=== PATIENT | female | born 1970 | race Caucasian/White ===

== ENCOUNTER 2016-07-17 20:43 | Emergency (ER) | payer MEDICAID ==
[~2016-07-17] VITALS: Ht 162.6 cm; Wt 62.6 kg
[~2016-07-17 20:43] MED LIST: ACETAMINOPHEN-1 EAC1 ORAL; CIPROFLOXACIN500 M2 ORAL; NKM; REGLAN10 MG PO; ZOFRAN ODT4 MG ORAL
[2016-07-17 20:58] VITALS: BP 127/64
[2016-07-17 21:43] LABS: BASOPHILS % (AUTO) 0.8 % (0.0-2.0); EOSINOPHILS % (AUTO) 0.8 % (0.0-3.0); MEAN CORPUSCULAR HEMOGLOBIN 30.6 PG (27.0-31.0); MEAN CORPUSCULAR HGB CONC 33.3 G/DL (32.0-36.0); MEAN CORPUSCULAR VOLUME 92 FL (80-99); MEAN PLATELET VOLUME 7.7 FL (6.5-10.1); MONOCYTES % (AUTO) 8.1 % (1.0-10.0); NEUTROPHILS % (AUTO) 57.3 % (45.0-75.0); PLATELET COUNT 167 K/UL (150-450); RED BLOOD COUNT 4.46 M/UL (4.20-5.40); WHITE BLOOD COUNT 5.8 K/UL (4.8-10.8)
[2016-07-17 21:59] VITALS: BP 114/76
[2016-07-17 22:13] LABS: APPEARANCE,URINE CLEAR; KETONES,URINE NEGATIVE (NEGATIVE); LEUKOCYTE ESTERASE ,URINE 3+ (NEGATIVE); NITRITE,URINE NEGATIVE (NEGATIVE); PH,URINE 6 (4.5-8.0); PROTEIN,URINE NEGATIVE (NEGATIVE); UROBILINOGEN,URINE NORMAL MG/DL (0.0-1.0)
[2016-07-17 22:26] LABS: RBC,URINE 0-2 /HPF (0 - 2)
[2016-07-17 22:27] LABS: BACTERIA,URINE FEW /HPF; SQUAMOUS EPITHELIAL CELL,UR MODERATE /LPF (NONE/OCC)
[2016-07-17 22:27] LABS: TROPONIN I < 0.30 ng/mL (<=0.30)
--- NOTE | 2016-07-17 22:29 | Emergency Room Report ---
History of Present Illness General Chief Complaint: Headache Source: Patient Present Illness HPI 45-year-old female presents to ED complaining of headache and neck pain. States that yesterday she had a syncopal fall while in the bathroom and hit her head. States since the fall she is complaining of pain to the back of her head radiating to her neck to her left shoulder. Pain is sharp, 8/10. No other aggravating relieving factors. Denies photophobia, blurry vision, nausea or vomiting. Denies chest pain or shortness of breath. Denies any other associated symptoms Allergies: Coded Allergies: No Known Allergies (Unverified , 03/03/13) Patient History Past Medical History: none Past Surgical History: none Pertinent Family History: none Social History: Denies: alcohol use, drug use, smoking Last Menstrual Period: 06/24/16 Now: No Immunizations: UTD Reviewed Nursing Documentation: PMH: Agreed, PSxH: Agreed Nursing Documentation-PMH Past Medical History: No Stated History Review of Systems All Other Systems: negative except mentioned in HPI Physical Exam Vital Signs Date Time Temp Pulse Resp B/P Pulse Ox O2 Delivery O2 Flow Rate FiO2 07/17/16 20:48 97.5 86 15 127/64 99 Room Air Sp02 EP Interpretation: reviewed, normal General Appearance: no apparent distress, alert, GCS 15, non-toxic Head: normocephalic, other - psoterior scalp tenderness Eyes: bilateral eye PERRL, bilateral eye normal inspection ENT: hearing grossly normal, normal pharynx, no angioedema, normal voice Neck: tender lateral, tender midline Respiratory: chest non-tender, lungs clear, normal breath sounds, speaking full sentences Cardiovascular #1: regular rate, rhythm, no edema Gastrointestinal: normal inspection Rectal: deferred Genitourinary: no CVA tenderness Musculoskeletal: back normal, gait/station normal, normal range of motion, non- tender Neurologic: alert, oriented x3, responsive, motor strength/tone normal, sensory intact, speech normal Psychiatric: normal inspection Skin: normal inspection Lymphatic: normal inspection Medical Decision Making Diagnostic Impression: Primary Impression: Head injury Qualified Codes: S09.90XA - Unspecified injury of head, initial encounter Additional Impression: Syncope Qualified Codes: R55 - Syncope and collapse ER Course Hospital Course 45-year-old female presents ED s/p syncopal episode. c/o headache, and neck pain due to fall Differential diagnoses include: arrythmia, dehydration, intracranial bleed, seizure, skull fx, cervical injury Clinical course Patient placed on stretcher. on surveillance monitor. After initial history and physical I ordered labs, EKG, chest Xray, IVFs, CT Brain, CT Cspine, pain meds labs reviewed- no leukocytosis, Hb/Hct stable, electrolytes ok, troponins negative CT Brain - unremarkable, CT Cspine shows DJD no acute fx EKG - NSR Upon reassessment patient states she feels better wishes to go home. per syncope rules patient can be safely discharged pending outpatient evaluation I. I feel this is a highly complex case requiring extensive working including EKG/Rhythm strip, Xray/CT/US, Blood/urine lab work, repeat exams while in ED, and administration of strong opiates/narcotics for pain control, admission to hospital or close patient follow up. Diagnosis - syncope, head injury Stable and discharged to home with Rx Motrin, Flexeril. Followup with PMD. Return to ED if symptoms recur or worsen Labs Test 07/17/16 21:20 07/17/16 21:50 White Blood Count 5.8 K/UL (4.8-10.8) Red Blood Count 4.46 M/UL (4.20-5.40) Hemoglobin 13.6 G/DL (12.0-16.0) Hematocrit 41.0 % (37.0-47.0) Mean Corpuscular Volume 92 FL (80-99) Mean Corpuscular Hemoglobin 30.6 PG (27.0-31.0) Mean Corpuscular Hemoglobin Concent 33.3 G/DL (32.0-36.0) Red Cell Distribution Width 11.0 % (11.6-14.8) Platelet Count 167 K/UL (150-450) Mean Platelet Volume 7.7 FL (6.5-10.1) Neutrophils (%) (Auto) 57.3 % (45.0-75.0) Lymphocytes (%) (Auto) 33.0 % (20.0-45.0) Monocytes (%) (Auto) 8.1 % (1.0-10.0) Eosinophils (%) (Auto) 0.8 % (0.0-3.0) Basophils (%) (Auto) 0.8 % (0.0-2.0) Troponin I < 0.30 ng/mL (<=0.30) Urine Color Pale yellow Urine Appearance Clear Urine pH 6 (4.5-8.0) Urine Specific [place] 1.010 (1.005-1.035) Urine Protein Negative (NEGATIVE) Urine Glucose (UA) Negative (NEGATIVE) Urine Ketones Negative (NEGATIVE) Urine Occult Blood 1+ (NEGATIVE) Urine Nitrite Negative (NEGATIVE) Urine Bilirubin Negative (NEGATIVE) Urine Urobilinogen Normal MG/DL (0.0-1.0) Urine Leukocyte Esterase 3+ (NEGATIVE) Urine RBC 0-2 /HPF (0 - 2) Urine WBC 10-15 /HPF (0 - 2) Urine Squamous Epithelial Cells Moderate /LPF (NONE/OCC) Urine Bacteria Few /HPF (NONE) Urine HCG, Qualitative Negative EKG Diagnostic Results Rate: normal Rhythm: NSR ST Segments: no acute changes ASA given to the pt in ED: No Rhythm Strip Diag. Results EP Interpretation: yes Rhythm: NSR, no PVC's, no ectopy CT/MRI/US Diagnostic Results CT/MRI/US Diagnostic Results : Imaging Test Ordered: CT head, CT Cspine Impression CT head - no acute process CT Cspine - no acute process Last Vital Signs Date Time Temp Pulse Resp B/P Pulse Ox O2 Delivery O2 Flow Rate FiO2 07/17/16 21:59 98.0 73 14 114/76 100 Room Air Status: improved Disposition: HOME, SELF-CARE Condition: Stable Scripts Cyclobenzaprine Hcl* (FLEXERIL*) 10 Mg Tablet 10 MG ORAL TID Y for Muscle Spasm, #20 TAB Prov: ALEXANDRA CRAWFORD M.D. 07/17/16 Ibuprofen* (MOTRIN*) 600 Mg Tablet 600 MG ORAL Q8H Y for For Pain, #30 TAB 0 Refills Prov: ALEXANDRA CRAWFORD M.D. 07/17/16 Referrals: [facility],REFERRING (PCP) ALEXANDRA CRAWFORD M.D. Jul 17, 2016 22:29
[2016-07-17] MEDS ORDERED: Ketorolac 30mg Inj IV ONE (22:30)
[2016-07-17 22:31] LABS: ALANINE AMINOTRANSFERASE 13 U/L (3-33); ALBUMIN/GLOBULIN RATIO 1.2 (1.0-2.7); ANION GAP 14 (5-15); ASPARTATE AMINO TRANSFERASE 16 U/L (5-40); CALCIUM 9.7 mg/dL (8.6-10.2); CARBON DIOXIDE 29 mEQ/L (20-30); CHLORIDE 99 mEQ/L (98-107); CREATININE 0.8 mg/dL (0.5-0.9); GLOMERULAR FILTRATION RATE > 60 mL/min (>60); HEMOLYSIS 8; POTASSIUM 3.6 mEQ/L (3.4-4.9); SODIUM 142 mEQ/L (135-145); TOTAL PROTEIN 7.5 g/dL (6.6-8.7)
[2016-07-17 22:36] LABS: CKMB < 1.5 ng/mL (< 3.8)
[2016-07-17] MEDS ORDERED: CYCLOBENZAPRINE10 MG ORAL (22:51)
[2016-07-17] MEDS ORDERED: IBUPROFEN600 MG ORAL (22:51)
[2016-07-17 23:01] VITALS: BP 116/79
--- NOTE | 2016-07-18 09:36 | Diagnostic Imaging Report ---
Indications: Syncope, fall, head trauma, neck pain, left upper extremity numbness Technique: Continuous helical CT imaging of the cervical spine performed with automatic exposure was on a Siemens sensation [address] scanner. Axial, coronal and sagittal images reconstructed at 3 mm slice thicknesses. CTDI volume(s): 10 mGy Total DLP: 209 mGy-cm Findings: Comparison: None. Lordotic curvature is preserved.Vertebral alignment is intact. No fracture, facet subluxation or dislocation, prevertebral soft tissue swelling, or other acute changes are demonstrated. Small osteophytes are present at the posterior margins of the C4-5 and C5-6 disc spaces. No obvious significant spinal stenosis or neural foraminal narrowing results.. IMPRESSION: No evidence of acute cervical injury Mild degenerative disc disease. Neural impingement not excludable. Consider MRI for more detailed evaluation.. This correlates with Dr. Ritter's preliminary report The CT scanner at [facility] is accredited by the [employer] and the scans are performed using protocols designed to limit radiation exposure to as low as reasonably achievable to attain images of sufficient resolution adequate for diagnostic evaluation.
--- NOTE | 2016-07-21 10:33 | Diagnostic Imaging Report ---
Indications: Syncope, fall, head trauma and pain, left upper extremity numbness Technique: Continuous helical CT imaging of the brain was performed with automatic exposure control on a Siemens sensation [address] scanner. Axial and coronal images were reconstructed at 5 mm slice thickness and interval. CTDI volume(s): 70 mGy Total DLP: 1340 mGy-cm Findings: Comparison: None. Intracranial anatomy is unremarkable. No evidence of mass or hemorrhage, other attenuation abnormality, mass effect, midline shift, hydrocephalus or increased intracranial pressure. Bone window images are unremarkable. Visualized paranasal sinuses and mastoid air cells are clear. IMPRESSION: Negative noncontrast CT scan of the brain --no evidence of acute injury. This correlates with Dr. Ritter's preliminary report. The CT scanner at [facility] is accredited by the [employer] and the scans are performed using protocols designed to limit radiation exposure to as low as reasonably achievable to attain images of sufficient resolution adequate for diagnostic evaluation.
--- NOTE | 2016-07-21 15:02 | Cardiology Report ---
APPROVED REPORT EKG Measurement Heart [id number] Normal sinus rhythm Incomplete right bundle branch block Borderline ECG
== END 2016-07-17 23:05 | disposition home or self-care (01) ==
LOC: EMR 21:32
DX: S09.8XXA Other specified injuries of head, initial encounter (principal); W19.XXXA Unspecified fall, initial encounter; Y92.002 Bathroom of unspecified non-institutional (private) residence as the place of occurrence of the external cause; R55 Syncope and collapse; M50.31 Other cervical disc degeneration, high cervical region
CPT/HCPCS: 36415; 70450; 72125; 80053; 81003; 81025; 82550; 82553; 84484; 85025; 87086; 93005; 96374; 96375; 99284; J1885; J7040

== ENCOUNTER 2019-09-10 03:30 | Inpatient (IN) | payer MEDICAID ==
[~2019-09-10] VITALS: Ht 165.1 cm; Wt 61.7 kg
[2019-09-10] VITALS (12 sets, daily range): BP systolic 96–132; BP diastolic 56–82
[~2019-09-10 03:30] MED LIST changes: +CYCLOBENZAPRINE10 MG ORAL; +IBUPROFEN600 MG ORAL
--- NOTE | 2019-09-10 03:39 | Emergency Room Report ---
History of Present Illness General Chief Complaint: To Be Triaged Source: Patient (Teofilo Lowe MD) Present Illness HPI Is a 48-year-old female who is postmenopausal. She presents with complaint abdominal pain. Onset was relatively acute. Pain started around midnight. Pain is periumbilical go down her right side. Pain is sharp and spasm. It came is in waves. She had nausea and vomiting when she got here. No fever or chills. Pain is 9 out of 10. No trauma. No urinary complaint. Nothing made it better. Nothing made it worse. Never had this problem before. (Teofilo Lowe MD) Allergies: Coded Allergies: No Known Allergies (Unverified , 03/03/13) Patient History Past Medical History: see triage record, old chart reviewed Past Surgical History: Pertinent Family History: none Social History: Denies: smoking Immunizations: other Reviewed Nursing Documentation: PMH: Agreed; PSxH: Agreed (Teofilo Lowe MD) Review of Systems Eye: Denies: eye pain, blurred vision ENT: Denies: ear pain, nose congestion, throat swelling Respiratory: Denies: cough, shortness of breath Cardiovascular: Denies: chest pain, palpitations Gastrointestinal: Reports: abdominal pain, nausea, vomiting; Denies: diarrhea Musculoskeletal: Denies: back pain, joint pain Skin: Denies: rash Neurological: Denies: headache, numbness Endocrine: Denies: increased thirst, increased urine Hematologic/Lymphatic: Denies: easy bruising All Other Systems: negative except mentioned in HPI (Teofilo Lowe MD) Physical Exam Vitals unremarkable Sp02 EP Interpretation: reviewed, normal General Appearance: well appearing, no apparent distress, alert Head: normocephalic, atraumatic Eyes: bilateral eye PERRL, bilateral eye EOMI ENT: hearing grossly normal, normal pharynx Neck: full range of motion, supple, no meningismus Respiratory: chest non-tender, lungs clear, normal breath sounds Cardiovascular #1: regular rate, rhythm, no murmur Gastrointestinal: normal bowel sounds, non tender, no mass, no organomegaly, no bruit, non-distended, decreased bowel sounds Musculoskeletal: back normal, normal range of motion, gait/station normal Psychiatric: mood/affect normal (Teofilo Lowe MD) Medical Decision Making Diagnostic Impression: Primary Impression: Abdominal pain Additional Impression: Appendicitis, acute Qualified Codes: K35.30 - Acute appendicitis with localized peritonitis, without perforation or gangrene ER Course This patient presents with abdominal pain periumbilical and now localized to the right lower quadrant. Labs normal. CT scan showed mildly dilated appendix without surrounding mesenteric inflammation. But there is a 3 mm appendicolith near the orifice. I reexamined the patient and now she does have localizing right lower quadrant pain. I put her on Zosyn. I contacted Dr. Calderon for surgical evaluation. (Teofilo Lowe MD) ER Course Please see above note. Patient examined by me. Pain is improved. She denies pain if there is no pressure applied to the abdomen. She states the pain is moving between the periumbilical area and the right lower quadrant. Abdomen is soft on exam. White count is normal. CT is reviewed with possible appendicitis. Patient states she wants to go home. Dr. Lowe said that he contacted Dr. Calderon for consult. [phone] Patient agrees to admission. Dr. Calderon recommends at least observation due to findings on CT. Patient to OR for appendectomy. Laboratory Tests Test 09/10/19 03:45 09/10/19 04:31 White Blood Count 10.6 K/UL (4.8-10.8) Red Blood Count 4.53 M/UL (4.20-5.40) Hemoglobin 14.1 G/DL (12.0-16.0) Hematocrit 39.8 % (37.0-47.0) Mean Corpuscular Volume 88 FL (80-99) Mean Corpuscular Hemoglobin 31.1 PG (27.0-31.0) H Mean Corpuscular Hemoglobin Concent 35.3 G/DL (32.0-36.0) Red Cell Distribution Width 11.3 % (11.6-14.8) L Platelet Count 199 K/UL (150-450) Mean Platelet Volume 8.3 FL (6.5-10.1) Neutrophils (%) (Auto) 73.1 % (45.0-75.0) Lymphocytes (%) (Auto) 21.2 % (20.0-45.0) Monocytes (%) (Auto) 4.4 % (1.0-10.0) Eosinophils (%) (Auto) 0.5 % (0.0-3.0) Basophils (%) (Auto) 0.8 % (0.0-2.0) Prothrombin Time 10.2 SEC (9.30-11.50) Prothrombin Time INR 1.0 (0.9-1.1) Activated Partial Thromboplast Time 23 SEC (23-33) Sodium Level 143 MMOL/L (136-145) Potassium Level 3.5 MMOL/L (3.5-5.1) Chloride Level 104 MMOL/L (98-107) Carbon Dioxide Level 28 MMOL/L (21-32) Anion Gap 11 mmol/L (5-15) Blood Urea Nitrogen 19 mg/dL (7-18) H Creatinine 0.8 MG/DL (0.55-1.30) Estimate Glomerular Filtration Rate > 60 mL/min (>60) Glucose Level 133 MG/DL (74-106) H Calcium Level 9.6 MG/DL (8.5-10.1) Total Bilirubin 0.4 MG/DL (0.2-1.0) Aspartate Amino Transferase (AST) 23 U/L (15-37) Alanine Aminotransferase (ALT) 29 U/L (12-78) Alkaline Phosphatase 92 U/L (46-116) Total Protein 7.9 G/DL (6.4-8.2) Albumin 4.2 G/DL (3.4-5.0) Globulin 3.7 g/dL Albumin/Globulin Ratio 1.1 (1.0-2.7) Lipase 200 U/L (73-393) Urine Color Yellow Urine Appearance Clear Urine pH 5 (4.5-8.0) Urine Specific [place] 1.025 (1.005-1.035) Urine Protein Negative (NEGATIVE) Urine Glucose (UA) Negative (NEGATIVE) Urine Ketones Negative (NEGATIVE) Urine Blood 2+ (NEGATIVE) H Urine Nitrite Negative (NEGATIVE) Urine Bilirubin Negative (NEGATIVE) Urine Urobilinogen Normal MG/DL (0.0-1.0) Urine Leukocyte Esterase 1+ (NEGATIVE) H Urine RBC 2-4 /HPF (0 - 2) H Urine WBC 0-2 /HPF (0 - 2) Urine Squamous Epithelial Cells Few /LPF (NONE/OCC) Urine Bacteria Few /HPF (NONE) (Jesse Lopez MD) Rhythm Strip Diag. Results EP Interpretation: yes Rhythm: NSR, no PVC's, no ectopy (Jesse Lopez MD) CT/MRI/US Diagnostic Results CT/MRI/US Diagnostic Results : Imaging Test Ordered: CT abdomen pelvis Impression Read by radiologist. Bendix is mildly dilated to 8 mm. There is without significant surrounding mesenteric inflammation. Possibly obstructed by 3 mm appendicolith near the orifice. May suggest early appendicitis. (Teofilo Lowe MD) CT/MRI/US Diagnostic Results : Imaging Test Ordered: abd/pelvis Impression Disclaimer: scant mesenteric fat limits evaluation of mesenteric inflammatory change. Appendix is mildly dilated 8mm, best seen on series 6 image 113, without significant surrounding mesenteric inflammation, possibly obstructed by 3 mm appendicoliths near orifice best seen on series 6 image 110, may suggest early appendicitis. Please correlate with clinical and laboratory findings. Hypodensities in the liver, likely cysts or hemangiomas, cannot be fully characterized due to lack of IV contrast. (Jesse Lopez MD) Status: improved (Teofilo Lowe MD) Last Vital Signs Date Time Temp Pulse Resp B/P (MAP) Pulse Ox O2 Delivery O2 Flow Rate FiO2 09/10/19 16:01 83 20 99 09/10/19 16:00 99.4 112/64 (80) 09/10/19 14:57 Nasal Cannula 3 Status: improved (Jesse Lopez MD) Disposition: ADMITTED INPATIENT Condition: Serious Teofilo Lowe MD Sep 10, 2019 03:39 Jesse Lopez MD Sep 10, 2019 06:54
[2019-09-10] MEDS ORDERED: Ketorolac 30mg Inj IV ONE (03:45)
[2019-09-10] MEDS ORDERED: Morphine Sulfate 4mg/ml Inj (IV USE ONLY) IVP ONE (03:45)
--- NOTE | 2019-09-10 03:50 | NUR ---
ED Nurse Note: Walk-in patient presents with complaints of right side abdominal pain. Labs drawn and sent, urine still pending post CT. patient already with photographic laboratory technician. Will monitor orders and acute status.
[2019-09-10 03:54] LABS: BASOPHILS % (AUTO) 0.8 % (0.0-2.0); EOSINOPHILS % (AUTO) 0.5 % (0.0-3.0); HEMATOCRIT 39.8 % (37.0-47.0); HEMOGLOBIN 14.1 G/DL (12.0-16.0); LYMPHOCYTES % (AUTO) 21.2 % (20.0-45.0); MEAN CORPUSCULAR VOLUME 88 FL (80-99); MONOCYTES % (AUTO) 4.4 % (1.0-10.0); NEUTROPHILS % (AUTO) 73.1 % (45.0-75.0); PLATELET COUNT 199 K/UL (150-450); RED BLOOD COUNT 4.53 M/UL (4.20-5.40); RED CELL DISTRIBUTION WIDTH 11.3 % (11.6-14.8); WHITE BLOOD COUNT 10.6 K/UL (4.8-10.8)
[2019-09-10 04:04] LABS: ANION GAP 11 mmol/L (5-15); BLOOD UREA NITROGEN 19 mg/dL (7-18); CALCIUM 9.6 MG/DL (8.5-10.1); CARBON DIOXIDE 28 MMOL/L (21-32); CHLORIDE 104 MMOL/L (98-107); CREATININE 0.8 MG/DL (0.55-1.30); POTASSIUM 3.5 MMOL/L (3.5-5.1); SODIUM 143 MMOL/L (136-145)
[2019-09-10 04:09] LABS: ALANINE AMINOTRANSFERASE 29 U/L (12-78); ALBUMIN 4.2 G/DL (3.4-5.0); ALBUMIN/GLOBULIN RATIO 1.1 (1.0-2.7); ALKALINE PHOSPHATASE 92 U/L (46-116); ASPARTATE AMINO TRANSFERASE 23 U/L (15-37); BILIRUBIN,TOTAL 0.4 MG/DL (0.2-1.0)
--- NOTE | 2019-09-10 04:50 | NUR ---
ED Nurse Note: Patient relaxing with at bedside. patient tolerated medication well and was able to ambulate to the restroom with steady gait. Will continue to monitor for lab results.
[2019-09-10 05:11] LABS: APPEARANCE,URINE CLEAR; BILIRUBIN, URINE NEGATIVE (NEGATIVE); GLUCOSE, URINE (UA) NEGATIVE (NEGATIVE); KETONES,URINE NEGATIVE (NEGATIVE); LEUKOCYTE ESTERASE ,URINE 1+ (NEGATIVE); NITRITE,URINE NEGATIVE (NEGATIVE); PH,URINE 5 (4.5-8.0); PROTEIN,URINE NEGATIVE (NEGATIVE); UROBILINOGEN,URINE NORMAL MG/DL (0.0-1.0)
[2019-09-10 05:25] LABS: COLOR,URINE YELLOW
--- NOTE | 2019-09-10 06:09 | NUR ---
ED Nurse Note: Patient has no complaints a this time and awaits CT result reading.
--- NOTE | 2019-09-10 06:10 | Diagnostic Imaging Report ---
Indication: Abdominal pain for one day Technique: Spiral acquisitions obtained through the abdomen and pelvis. No oral contrast utilized, per emergency room physician request No IV contrast utilized, per referring physician request.. Multiplanar reconstructions were generated. Total dose length product 230 mGycm. CTDIvol(s) 4 mGy. Dose reduction achieved using automated exposure control Comparison: None Findings: There is a small amount of free fluid in the pelvis. The appendix contains at least 2 appendicoliths. It is mildly prominent in caliber. No definite infiltration of the periappendiceal fat. No evidence of colonic diverticulosis or diverticulitis. No small bowel distention. No free or loculated intraperitoneal gas is evident. Distal esophagus, stomach, duodenum are unremarkable. Lack of IV contrast limits assessment of solid organs. The liver demonstrates multiple cysts. There is a subcentimeter fat attenuation lesion in segment 5. The bile ducts, pancreas, spleen, adrenals, kidneys are unremarkable. No retroperitoneal or mesenteric mass or adenopathy. No pelvic mass or adenopathy. Uterus and adnexal structures appear unremarkable. The included lung bases demonstrate posterior dependent atelectatic changes. The bones are unremarkable. Impression: Mildly prominent appendix demonstrating at least 2 appendicoliths, could represent very early appendicitis or could be normal for this patient. Correlate with clinical findings, consider follow-up imaging as indicated Free pelvic fluid, most likely physiologic Hepatic cysts and probable hepatic lipoma Posterior dependent pulmonary atelectatic changes This agrees with the preliminary interpretation provided overnight by [employer] teleradiology service. The CT scanner at [facility] is accredited by the [employer] and the scans are performed using protocols designed to limit radiation exposure to as low as reasonably achievable to attain images of sufficient resolution adequate for diagnostic evaluation.
[2019-09-10] MEDS ORDERED: Piperacillin/Tazobactam 3.375 GM in NS 110 ML IVPB ONE (06:30)
--- NOTE | 2019-09-10 07:01 | NUR ---
HAND-OFF: Report given to Daisy HANLEY.
[2019-09-10] MEDS ORDERED: Morphine Sulfate 2mg/ml Inj(IV/IM USE ONLY) IVP ONE (09:00)
--- NOTE | 2019-09-10 10:23 | GI Initial Consult Note ---
History of Present Illness General Date patient seen: Sep 10, 2019 Time patient seen: 10:16 Reason for Hospitalization: Abdominal Pain Referring physician: YENNI MARTINEZ Reason for Consultation: ABDOMINAL PAIN Present Illness HPI Is a 48-year-old female who is postmenopausal. She presents with complaint abdominal pain. Onset was relatively acute. Pain started around midnight. Pain is periumbilical go down her right side. Pain is sharp and spasm. It came is in waves. She had nausea and vomiting when she got here. No fever or chills. Pain is 9 out of 10. No trauma. No urinary complaint. Nothing made it better. Nothing made it worse. Never had this problem before. GI consulted for episode of severe abdominal pain x1. Patient was seen, awake alert oriented x4 no apparent distress with no active signs or symptoms of any nausea vomiting. At the time of evaluation, the patient rates her abdominal pain is 1 out of 10. Abdomen was soft, non-tender with light palpation, nondistended. The patient denied any constipation or diarrhea. The patient denied any use of EtOH, alcohol tobacco or drugs. Patient denies any prior episodes. Patient has no history of endoscopic or colonoscopy. The patient had an abdominal pelvis CT performed care and noted at least 2 appendicoliths which may represent very early appendicitis. 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 The patient has no history of endoscopic or colonoscopy. Home Meds Active Scripts Cyclobenzaprine Hcl* (FLEXERIL*) 10 Mg Tablet, 10 MG ORAL TID PRN for Muscle Spasm, #20 TAB Prov:Fabio Dey MD 07/17/16 Ibuprofen* (MOTRIN*) 600 Mg Tablet, 600 MG ORAL Q8H PRN for For Pain, #30 TAB 0 Refills Prov:Fabio Dey MD 07/17/16 Acetaminophen With Codeine (T#3) (TYLENOL #3 TAB*) 1 Each Tablet, 1 TAB ORAL Q4HR PRN for For Pain, #15 TAB 0 Refills Prov:Italia Morel 07/01/15 Ondansetron Odt* (ZOFRAN ODT*) 4 Mg Tab.rapdis, 4 MG ORAL Q6H PRN for Nausea & Vomiting, #12 TAB 0 Refills Prov:Italia Morel 07/01/15 Ciprofloxacin Hcl* (CIPROFLOXACIN HCL*) 500 Mg Tablet, 500 MG ORAL Q12H, #14 TAB 0 Refills Prov:Italia Morel PAC 07/01/15 Metoclopramide Hcl* (REGLAN*) 10 Mg Tablet, 10 MG PO BID, #15 TAB 0 Refills Prov:Shaila Orellana DO 03/03/13 Reported Medications No Known Medications* (NKM - No Known Medications*) ., 0 ., 0 Refills 03/03/13 Med list reviewed/reconciled: Yes Allergies: Coded Allergies: No Known Allergies (Unverified , 03/03/13) Patient History History Provided By: Patient, Medical Record Past Surgical History: none Pertinent Family History: none Social History: Denies: smoking, alcohol use, drug use, other Review of Systems All Other Systems: negative except mentioned in HPI Physical Exam Vital Signs Date Time Temp Pulse Resp B/P (MAP) Pulse Ox O2 Delivery O2 Flow Rate FiO2 09/10/19 03:37 99.0 72 18 132/82 (99) 97 Room Air Sp02 EP Interpretation: reviewed, normal Labs Laboratory Tests Test 09/10/19 03:45 09/10/19 04:31 White Blood Count 10.6 K/UL (4.8-10.8) Red Blood Count 4.53 M/UL (4.20-5.40) Hemoglobin 14.1 G/DL (12.0-16.0) Hematocrit 39.8 % (37.0-47.0) Mean Corpuscular Volume 88 FL (80-99) Mean Corpuscular Hemoglobin 31.1 PG (27.0-31.0) H Mean Corpuscular Hemoglobin Concent 35.3 G/DL (32.0-36.0) Red Cell Distribution Width 11.3 % (11.6-14.8) L Platelet Count 199 K/UL (150-450) Mean Platelet Volume 8.3 FL (6.5-10.1) Neutrophils (%) (Auto) 73.1 % (45.0-75.0) Lymphocytes (%) (Auto) 21.2 % (20.0-45.0) Monocytes (%) (Auto) 4.4 % (1.0-10.0) Eosinophils (%) (Auto) 0.5 % (0.0-3.0) Basophils (%) (Auto) 0.8 % (0.0-2.0) Prothrombin Time 10.2 SEC (9.30-11.50) Prothromb Time International Ratio 1.0 (0.9-1.1) Activated Partial Thromboplast Time 23 SEC (23-33) Sodium Level 143 MMOL/L (136-145) Potassium Level 3.5 MMOL/L (3.5-5.1) Chloride Level 104 MMOL/L (98-107) Carbon Dioxide Level 28 MMOL/L (21-32) Anion Gap 11 mmol/L (5-15) Blood Urea Nitrogen 19 mg/dL (7-18) H Creatinine 0.8 MG/DL (0.55-1.30) Estimat Glomerular Filtration Rate > 60 mL/min (>60) Glucose Level 133 MG/DL (74-106) H Calcium Level 9.6 MG/DL (8.5-10.1) Total Bilirubin 0.4 MG/DL (0.2-1.0) Aspartate Amino Transf (AST/SGOT) 23 U/L (15-37) Alanine Aminotransferase (ALT/SGPT) 29 U/L (12-78) Alkaline Phosphatase 92 U/L (46-116) Total Protein 7.9 G/DL (6.4-8.2) Albumin 4.2 G/DL (3.4-5.0) Globulin 3.7 g/dL Albumin/Globulin Ratio 1.1 (1.0-2.7) Lipase 200 U/L (73-393) Urine Color Yellow Urine Appearance Clear Urine pH 5 (4.5-8.0) Urine Specific [place] 1.025 (1.005-1.035) Urine Protein Negative (NEGATIVE) Urine Glucose (UA) Negative (NEGATIVE) Urine Ketones Negative (NEGATIVE) Urine Blood 2+ (NEGATIVE) H Urine Nitrite Negative (NEGATIVE) Urine Bilirubin Negative (NEGATIVE) Urine Urobilinogen Normal MG/DL (0.0-1.0) Urine Leukocyte Esterase 1+ (NEGATIVE) H Urine RBC 2-4 /HPF (0 - 2) H Urine WBC 0-2 /HPF (0 - 2) Urine Squamous Epithelial Cells Few /LPF (NONE/OCC) Urine Bacteria Few /HPF (NONE) General Appearance: well appearing, no apparent distress, alert Head: normocephalic EENT: PERRL/EOMI, normal ENT inspection Neck: supple Respiratory: normal breath sounds, no respiratory distress Cardiovascular: normal rate Gastrointestinal: normal inspection, non tender, soft, normal bowel sounds, non -distended Rectal: deferred Genitourinary: no CVA tenderness Musculoskeletal: normal inspection, back normal Neurologic: alert, oriented x3, responsive, normal inspection Psychiatric: normal inspection, judgement/insight normal, memory normal Skin: normal inspection, normal color, no rash, warm/dry, palpation normal, well hydrated Lymphatic: normal inspection, no adenopathy Current Medications Current Medications Medications (Trade) Dose Ordered Sig/Joey Route PRN Reason Start Time Stop Time Status Last Admin Dose Admin Sodium Chloride 1,000 ml @ 300 mls/hr Q3H20M IV 09/10/19 09:15 10/10/19 09:14 09/10/19 09:45 GI: Plan Problems: (1) Hepatic cyst (2) Appendicitis, acute (3) Abdominal pain Plan #Appendicitis Follow-up surgical recommendations for possible appendectomy Maintain n.p.o. plus IV fluids Pain management, controlled at this time Prophylactic PPI Broad-spectrum antibiotic, Zosyn x1 given in the ER #Hepatic cyst v hepatic hemangioma Benign, no treatment necessary. Recommend repeat imaging study x1 year We will follow on a daily basis with any additional recommendations. Discussed with Dr. Bello. Thank you for this patient referral, we will follow. The patient was seen and examined at bedside and all new and available data was reviewed in the patients chart. I agree with the above findings, impression and plan. (Patient seen earlier today. Signature stamp does not reflect patient encounter time.). - MD Chrissy VillelaBanner Goldfield Medical CenterCamilla COLORING ROOM WORKER Sep 10, 2019 10:23
--- NOTE | 2019-09-10 11:10 | NUR ---
ED Nurse Note: AB screen endorsed to Zenobia RN.
--- NOTE | 2019-09-10 11:11 | NUR ---
ED Nurse Note: Report given to Zenobia RN.
--- NOTE | 2019-09-10 11:17 | Pre-Procedure Note/Attestation ---
Pre-Procedure Note/Attestation Complete Prior to Procedure Planned Procedure: not applicable Procedure Narrative: laparoscopic appendectomy possible open Indications for Procedure Pre-Operative Diagnosis: early acute appendicitis Attestation I attest that I discussed the nature of the procedure; its benefits; risks and complications; and alternatives (and the risks and benefits of such alternatives ), prior to the procedure, with the patient (or the patient's legal event sales representative). I attest that, if there was a reasonable possibility of needing a blood transfusion, the patient (or the patient's legal event sales representative) was given the [facility] standardized written summary, pursuant to the [place] Blood Safety Act ([place] Health and Safety Code # 1645, as amended). I attest that I re-evaluated the patient just prior to the surgery and that there has been no change in the patient's H&P, except as documented below: Marin Calderon Sep 10, 2019 11:17
--- NOTE | 2019-09-10 11:24 | Consultation ---
History of Present Illness General Date patient seen: Sep 10, 2019 Reason for Hospitalization: Abdominal Pain Present Illness HPI this is a 48 year old otherwise healthy female who presented to ED with complaints of acute onset periumbilical radiating to RLQ abdominal pain. states work her up from sleep and was 10/10 cramping sharp pain shooting from umbilicus to RLQ. +nausea. no emesis. nml bowel function. Has been feeling unwell for 2-3 days prior. In ED labs okay, CT with two appendicolithis, exam with RLQ tenderness. surgery called to evaluate. patient seen, chart reviewed, patient examined. states still discomfort but better since given morphine. menopause 2 years ago. otherwise healthy Allergies: Coded Allergies: No Known Allergies (Unverified , 03/03/13) Medication History Scheduled Ciprofloxacin Hcl* (Ciprofloxacin Hcl*), 500 MG ORAL Q12H Metoclopramide Hcl* (Reglan*), 10 MG PO BID No Known Medications* (NKM - No Known Medications*), 0 ., (Reported) Scheduled PRN Acetaminophen With Codeine (T#3) (Tylenol #3 Tab*), 1 TAB ORAL Q4HR PRN for For Pain Cyclobenzaprine Hcl* (Flexeril*), 10 MG ORAL TID PRN for Muscle Spasm Ibuprofen* (Motrin*), 600 MG ORAL Q8H PRN for For Pain Ondansetron Odt* (Zofran Odt*), 4 MG ORAL Q6H PRN for Nausea & Vomiting Patient History History Provided By: Patient, Medical Record, PMD Healthcare decision maker Resuscitation status Advanced Directive on File Past Medical/Surgical History Past Medical/Surgical History: (1) Viral gastroenteritis (2) Bacteria in urine (3) Abdominal pain (4) Hepatic cyst (5) Appendicitis, acute Review of Systems Review of Symptoms General ROS: no weight loss or fever Psychological ROS: no depression or mood changes, no memory loss Ophthalmic ROS: no visual changes or eye irritation ENT ROS: no nasal congestion, hearing loss, dizziness Allergy and Immunology ROS: no allergic symptoms or urticaria Hematological and Lymphatic ROS: no swollen glands, unusual bleeding or bruising Endocrine ROS: no polyuria, polydipsia, weight changes, temperature intolerance Respiratory ROS: no cough, shortness of breath, or wheezing Cardiovascular ROS: no chest pain or dyspnea on exertion Gastrointestinal ROS: abdominal pain, bright red blood in stool. Musculoskeletal ROS: no myalgias or arthralgias Neurological ROS: no TIA or stroke symptoms Dermatological ROS: no new or changing skin lesions, rashes or pruritis Physical Exam Physical Exam General appearance: alert, cooperative, no distress, appears stated age Head: Normocephalic, without obvious abnormality, atraumatic Eyes: conjunctivae/corneas clear. PERRL, EOM's intact. Fundi benign Throat: Lips, mucosa, and tongue normal. Teeth and gums normal Neck: supple, symmetrical, trachea midline, no adenopathy, thyroid: not enlarged, symmetric, no tenderness/mass/nodules, no carotid bruit and no JVD Lungs: clear to auscultation bilaterally Heart: regular rate and rhythm, S1, S2 normal, no murmur, click, rub or gallop Abdomen: soft, RLQ-tender. Bowel sounds normal. No masses, no organomegaly Extremities: extremities normal, atraumatic, no cyanosis or edema Pulses: 2+ and symmetric Skin: Skin color, texture, turgor normal. No rashes or lesions Neurologic: Grossly normal Last 24 Hour Vital Signs Date Time Temp Pulse Resp B/P (MAP) Pulse Ox O2 Delivery O2 Flow Rate FiO2 09/10/19 06:41 97.8 76 17 98/56 100 Room Air 09/10/19 04:13 99.0 09/10/19 04:13 99.0 09/10/19 03:37 99.0 72 18 132/82 97 Room Air 09/10/19 03:37 72 18 Room Air 09/10/19 03:37 99.0 72 18 132/82 (99) 97 Room Air Intake and Output 09/09/19 09/10/19 19:00 07:00 Intake Total 1000 ml Balance 1000 ml Intake Oral 0 ml IV Total 1000 ml Laboratory Tests Test 09/10/19 03:45 09/10/19 04:31 White Blood Count 10.6 K/UL (4.8-10.8) Red Blood Count 4.53 M/UL (4.20-5.40) Hemoglobin 14.1 G/DL (12.0-16.0) Hematocrit 39.8 % (37.0-47.0) Mean Corpuscular Volume 88 FL (80-99) Mean Corpuscular Hemoglobin 31.1 PG (27.0-31.0) H Mean Corpuscular Hemoglobin Concent 35.3 G/DL (32.0-36.0) Red Cell Distribution Width 11.3 % (11.6-14.8) L Platelet Count 199 K/UL (150-450) Mean Platelet Volume 8.3 FL (6.5-10.1) Neutrophils (%) (Auto) 73.1 % (45.0-75.0) Lymphocytes (%) (Auto) 21.2 % (20.0-45.0) Monocytes (%) (Auto) 4.4 % (1.0-10.0) Eosinophils (%) (Auto) 0.5 % (0.0-3.0) Basophils (%) (Auto) 0.8 % (0.0-2.0) Prothrombin Time 10.2 SEC (9.30-11.50) Prothromb Time International Ratio 1.0 (0.9-1.1) Activated Partial Thromboplast Time 23 SEC (23-33) Sodium Level 143 MMOL/L (136-145) Potassium Level 3.5 MMOL/L (3.5-5.1) Chloride Level 104 MMOL/L (98-107) Carbon Dioxide Level 28 MMOL/L (21-32) Anion Gap 11 mmol/L (5-15) Blood Urea Nitrogen 19 mg/dL (7-18) H Creatinine 0.8 MG/DL (0.55-1.30) Estimat Glomerular Filtration Rate > 60 mL/min (>60) Glucose Level 133 MG/DL (74-106) H Calcium Level 9.6 MG/DL (8.5-10.1) Total Bilirubin 0.4 MG/DL (0.2-1.0) Aspartate Amino Transf (AST/SGOT) 23 U/L (15-37) Alanine Aminotransferase (ALT/SGPT) 29 U/L (12-78) Alkaline Phosphatase 92 U/L (46-116) Total Protein 7.9 G/DL (6.4-8.2) Albumin 4.2 G/DL (3.4-5.0) Globulin 3.7 g/dL Albumin/Globulin Ratio 1.1 (1.0-2.7) Lipase 200 U/L (73-393) Urine Color Yellow Urine Appearance Clear Urine pH 5 (4.5-8.0) Urine Specific [place] 1.025 (1.005-1.035) Urine Protein Negative (NEGATIVE) Urine Glucose (UA) Negative (NEGATIVE) Urine Ketones Negative (NEGATIVE) Urine Blood 2+ (NEGATIVE) H Urine Nitrite Negative (NEGATIVE) Urine Bilirubin Negative (NEGATIVE) Urine Urobilinogen Normal MG/DL (0.0-1.0) Urine Leukocyte Esterase 1+ (NEGATIVE) H Urine RBC 2-4 /HPF (0 - 2) H Urine WBC 0-2 /HPF (0 - 2) Urine Squamous Epithelial Cells Few /LPF (NONE/OCC) Urine Bacteria Few /HPF (NONE) Height (Feet): 5 Height (Inches): 6.00 Weight (Pounds): 132 Medications Current Medications Medications (Trade) Dose Ordered Sig/Joey Route PRN Reason Start Time Stop Time Status Last Admin Dose Admin Sodium Chloride 1,000 ml @ 300 mls/hr Q3H20M IV 09/10/19 09:15 10/10/19 09:14 09/10/19 09:45 Assessment/Plan Problem List: (1) Abdominal pain (2) Appendicitis, acute Assessment & Plan: 48F with possible likely early acute appendicitis. afebrile, HD stable, labs okay CT noted exam with focal RLQ tenderness mcburney's point with mild voluntary guarding and rebound. long discussion with patient about above findings. i explained to her potential of early acute appendicitis vs enteritis, muscle spasm, etc. offered monitoring inpatient vs outpatient vs surgery. given tender and still remains so after narotics with focal in RLQ patient elected to proceed with surgical intervention. she does not want to take risk of monitoring and if potential of appendicitis would like to have early intervention risks, benefits, and alternatives discussed in detail. we discussed possibility of normal operative findings and potential normal appendix intraoperative npo iv fluids iv abx consent to OR for lap vs open appy thank you ICD Codes: K35.80 - Unspecified acute appendicitis SNOMED: [id number] Qualifiers: Qualified Codes: K35.30 - Acute appendicitis with localized peritonitis, without perforation or gangrene Marin Calderon Sep 10, 2019 11:24
--- NOTE | 2019-09-10 11:30 | NUR ---
NURSE NOTES: Patient received from ER. No SOB or acute distress. IV line on left hand g20 intact and patent. For laparoscopic appendectomy, consent for surgery and blood transfusion signed. NPO post 2am. HOB elevated. Bed locked in lowest position. Call light within reach. Addendum: 09/10/19 at 1947 by Zenobia Taylor RN Skin intact. Belongings accounted for and placed in safe.
--- NOTE | 2019-09-10 11:40 | Anethesia Preoperative Eval ---
Anesthesia Pre-op PMH/ROS General Date of Evaluation: Sep 10, 2019 Time of Evaluation: 12:30 Anesthesiologist: Malinda Dominguez CRNA ASA Score: ASA 1 Mallampati Score Class I : Soft palate, uvula, fauces, pillars visible Class II: Soft palate, uvula, fauces visible Class III: Soft palate, base of uvula visible Class IV: Only hard plate visible Mallampati Classification: Class II Surgeon: Yumiko Diagnosis: Acute appendicitis Surgical Procedure: Laparoscopic appendectomy Family History: no anesthesia problems Allergies: Coded Allergies: No Known Allergies (Unverified , 03/03/13) Medications: see eMAR Patient NPO?: Yes NPO Date: Sep 10, 2019 NPO Time: 00:00 Past Medical History Cardiovascular: Denies: HTN, CAD, [place], valve dz, arrhythmia, other Pulmonary: Denies: asthma, COPD, RYAN, other Gastrointestinal/Genitourinary: Reports: other - acute appendicitis (+) N/V; post menopausal Neurologic/Psychiatric: Denies: dementia, CVA, depression/anxiety, TIA, other Endocrine: Denies: DM, hypothyroidism, steroids, other HEENT: Denies: cataract (L), cataract (R), glaucoma, PAUMA (L), PAUMA (R), other Hematology/Immune: Denies: anemia, DVT, bleeding disorder, other Musculoskeletal/Integumentary: Denies: OA, RA, DJD, DDD, edema, other PMH Narrative: as noted above PSxH Narrative: C/S Anesthesia Pre-op Phys. Exam Physician Exam Last Vital Signs Date Time Temp Pulse Resp B/P (MAP) Pulse Ox O2 Delivery O2 Flow Rate FiO2 09/10/19 11:20 97.8 72 18 112/76 99 Room Air Constitutional: NAD Neurologic: other - alert & oriented Cardiovascular: RRR Respiratory: CTA Gastrointestinal: other - guarding Airway Exam Mallampati Score: Class II MO: full Neck: FROM TMD: > 3FB ROM: full Teeth: intact Dentures: no upper, no lower Anesthesia Pre-op A/P Labs Hematology Test 09/10/19 03:45 White Blood Count 10.6 K/UL (4.8-10.8) Red Blood Count 4.53 M/UL (4.20-5.40) Hemoglobin 14.1 G/DL (12.0-16.0) Hematocrit 39.8 % (37.0-47.0) Mean Corpuscular Volume 88 FL (80-99) Mean Corpuscular Hemoglobin 31.1 PG (27.0-31.0) H Mean Corpuscular Hemoglobin Concent 35.3 G/DL (32.0-36.0) Red Cell Distribution Width 11.3 % (11.6-14.8) L Platelet Count 199 K/UL (150-450) Mean Platelet Volume 8.3 FL (6.5-10.1) Neutrophils (%) (Auto) 73.1 % (45.0-75.0) Lymphocytes (%) (Auto) 21.2 % (20.0-45.0) Monocytes (%) (Auto) 4.4 % (1.0-10.0) Eosinophils (%) (Auto) 0.5 % (0.0-3.0) Basophils (%) (Auto) 0.8 % (0.0-2.0) Coagulation Test 09/10/19 03:45 Prothrombin Time 10.2 SEC (9.30-11.50) Prothromb Time International Ratio 1.0 (0.9-1.1) Activated Partial Thromboplast Time 23 SEC (23-33) Chemistry Test 09/10/19 03:45 Sodium Level 143 MMOL/L (136-145) Potassium Level 3.5 MMOL/L (3.5-5.1) Chloride Level 104 MMOL/L (98-107) Carbon Dioxide Level 28 MMOL/L (21-32) Anion Gap 11 mmol/L (5-15) Blood Urea Nitrogen 19 mg/dL (7-18) H Creatinine 0.8 MG/DL (0.55-1.30) Estimat Glomerular Filtration Rate > 60 mL/min (>60) Glucose Level 133 MG/DL (74-106) H Calcium Level 9.6 MG/DL (8.5-10.1) Total Bilirubin 0.4 MG/DL (0.2-1.0) Aspartate Amino Transf (AST/SGOT) 23 U/L (15-37) Alanine Aminotransferase (ALT/SGPT) 29 U/L (12-78) Alkaline Phosphatase 92 U/L (46-116) Total Protein 7.9 G/DL (6.4-8.2) Albumin 4.2 G/DL (3.4-5.0) Globulin 3.7 g/dL Albumin/Globulin Ratio 1.1 (1.0-2.7) Lipase 200 U/L (73-393) Urine Test n/a Risk Assessment & Plan Assessment: ASA 1E; ok to proceed Plan: GETA Status Change Before Surgery: No Pre-Antibiotics Drug: Malinda Jose CRNA Sep 10, 2019 11:40
[2019-09-10] MEDS ORDERED: Propofol 200mg/20ml IV ONE (11:41)
[2019-09-10] MEDS ORDERED: Lidocaine 1% MPF 10mg/ml 5ml ONE (11:41)
[2019-09-10] MEDS ORDERED: fentaNYL 100 mcg/2 mL IV ONE (11:41)
[2019-09-10] MEDS ORDERED: Midazolam 2mg/2ml Inj ONE (11:42)
[2019-09-10] MEDS ORDERED: Succinylcholine 20mg/ml 10ml vial ONE (11:56)
[2019-09-10] MEDS ORDERED: Rocuronium Bromide 50mg/5ml Inj IV ONE (11:56)
--- NOTE | 2019-09-10 12:30 | NUR ---
NURSE NOTES: Patient transported to OR.
[2019-09-10] MEDS ORDERED: Glycopyrrolate 0.2mg/ml 1ml Vial ONE (13:16)
[2019-09-10] MEDS ORDERED: Ketorolac 30mg Inj ONE (13:16)
[2019-09-10] MEDS ORDERED: Dexamethasone 4mg/ml vial ONE (13:16)
[2019-09-10] MEDS ORDERED: Metoclopramide 10mg/2ml Inj ONE (13:16)
[2019-09-10] MEDS ORDERED: Neostigmine 1mg/ml 10ml Inj ONE (13:16)
[2019-09-10] MEDS ORDERED: Morphine Sulfate 10mg/ml Inj ONE (13:18)
[2019-09-10] MEDS ORDERED: Hydromorphone 0.5mg/0.5ml inj IVP PRN (13:30)
[2019-09-10] MEDS ORDERED: Meperidine 25mg/0.5ml Inj (FOR RIGORS ONLY) IV PRN (13:30)
--- NOTE | 2019-09-10 13:31 | Immediate Post-Op Evaluation ---
Immediate Post-Op Evalulation Immediate Post-Op Evalulation Procedure: Laparoscopic Appendectomy Date of Evaluation: Sep 10, 2019 Time of Evaluation: 14:00 IV Fluids: LR 800 ml Estimated Blood Loss: 5 Blood Pressure Systolic: 105 Blood Pressure Diastolic: 62 Pulse Rate: 84 Respiratory Rate: 20 O2 Sat by Pulse Oximetry: 100 Temperature (Fahrenheit): 99.2 Pain Score (1-10): 0 Nausea: No Vomiting: No Complications none Patient Status: awake, extubated Hydration Status: adequate Drug: Zosyn 3.375 gm Given Within 1 Hr of Incision: Yes Time Given: 13:00 Malinda Dominguez CRNA Sep 10, 2019 13:31
--- NOTE | 2019-09-10 13:44 | Infectious Diseases Prog Note ---
Subjective Allergies: Coded Allergies: No Known Allergies (Unverified , 03/03/13) Subjective Dic # [id number] Objective Vital Signs Last 24 Hour Vital Signs Date Time Temp Pulse Resp B/P (MAP) Pulse Ox O2 Delivery O2 Flow Rate FiO2 09/10/19 11:40 Room Air 09/10/19 11:20 97.8 72 18 112/76 99 Room Air 09/10/19 06:41 97.8 76 17 98/56 100 Room Air 09/10/19 04:13 99.0 09/10/19 04:13 99.0 09/10/19 03:37 99.0 72 18 132/82 97 Room Air 09/10/19 03:37 72 18 Room Air 09/10/19 03:37 99.0 72 18 132/82 (99) 97 Room Air Height (Feet): 5 Height (Inches): 5.00 Weight (Pounds): 136 Laboratory Tests Test 09/10/19 03:45 09/10/19 04:31 White Blood Count 10.6 K/UL (4.8-10.8) Red Blood Count 4.53 M/UL (4.20-5.40) Hemoglobin 14.1 G/DL (12.0-16.0) Hematocrit 39.8 % (37.0-47.0) Mean Corpuscular Volume 88 FL (80-99) Mean Corpuscular Hemoglobin 31.1 PG (27.0-31.0) H Mean Corpuscular Hemoglobin Concent 35.3 G/DL (32.0-36.0) Red Cell Distribution Width 11.3 % (11.6-14.8) L Platelet Count 199 K/UL (150-450) Mean Platelet Volume 8.3 FL (6.5-10.1) Neutrophils (%) (Auto) 73.1 % (45.0-75.0) Lymphocytes (%) (Auto) 21.2 % (20.0-45.0) Monocytes (%) (Auto) 4.4 % (1.0-10.0) Eosinophils (%) (Auto) 0.5 % (0.0-3.0) Basophils (%) (Auto) 0.8 % (0.0-2.0) Prothrombin Time 10.2 SEC (9.30-11.50) Prothromb Time International Ratio 1.0 (0.9-1.1) Activated Partial Thromboplast Time 23 SEC (23-33) Sodium Level 143 MMOL/L (136-145) Potassium Level 3.5 MMOL/L (3.5-5.1) Chloride Level 104 MMOL/L (98-107) Carbon Dioxide Level 28 MMOL/L (21-32) Anion Gap 11 mmol/L (5-15) Blood Urea Nitrogen 19 mg/dL (7-18) H Creatinine 0.8 MG/DL (0.55-1.30) Estimat Glomerular Filtration Rate > 60 mL/min (>60) Glucose Level 133 MG/DL (74-106) H Calcium Level 9.6 MG/DL (8.5-10.1) Total Bilirubin 0.4 MG/DL (0.2-1.0) Aspartate Amino Transf (AST/SGOT) 23 U/L (15-37) Alanine Aminotransferase (ALT/SGPT) 29 U/L (12-78) Alkaline Phosphatase 92 U/L (46-116) Total Protein 7.9 G/DL (6.4-8.2) Albumin 4.2 G/DL (3.4-5.0) Globulin 3.7 g/dL Albumin/Globulin Ratio 1.1 (1.0-2.7) Lipase 200 U/L (73-393) Urine Color Yellow Urine Appearance Clear Urine pH 5 (4.5-8.0) Urine Specific [place] 1.025 (1.005-1.035) Urine Protein Negative (NEGATIVE) Urine Glucose (UA) Negative (NEGATIVE) Urine Ketones Negative (NEGATIVE) Urine Blood 2+ (NEGATIVE) H Urine Nitrite Negative (NEGATIVE) Urine Bilirubin Negative (NEGATIVE) Urine Urobilinogen Normal MG/DL (0.0-1.0) Urine Leukocyte Esterase 1+ (NEGATIVE) H Urine RBC 2-4 /HPF (0 - 2) H Urine WBC 0-2 /HPF (0 - 2) Urine Squamous Epithelial Cells Few /LPF (NONE/OCC) Urine Bacteria Few /HPF (NONE) Current Medications Medications (Trade) Dose Ordered Sig/Joey Route PRN Reason Start Time Stop Time Status Last Admin Dose Admin Acetaminophen (Tylenol) 650 mg Q4H PRN ORAL Mild Pain (Pain Scale 1-3) 09/10/19 13:30 09/10/19 21:00 Hydromorphone HCl (Dilaudid) 0.5 mg Q15M PRN IVP Severe Pain (Pain Scale 7-10) 09/10/19 13:30 09/10/19 21:00 Meperidine HCl (Demerol) 25 mg Q15M PRN IV Shivering 09/10/19 13:30 09/10/19 21:00 Ondansetron HCl (Zofran) 4 mg Q1H PRN IVP Nausea & Vomiting 09/10/19 13:30 09/10/19 21:00 Piperacillin Sod/ Tazobactam Sod 3.375 gm/Sodium Chloride 110 ml @ 27.5 mls/hr EVERY 8 HOURS IVPB 09/10/19 14:00 09/15/19 13:59 Sodium Chloride 1,000 ml @ 300 mls/hr Q3H20M IV 09/10/19 09:15 10/10/19 09:14 09/10/19 09:45 Antony Gomez MD Sep 10, 2019 13:44
--- NOTE | 2019-09-10 13:52 | Brief Operative Note ---
Immediate Post Operative Note Operative Note Pre-op Diagnosis: early acute appendicitis Procedure: lap appy Post-op Diagnosis: same as pre-op Surgeon: orly Anesthesiologist: marialuisa Anesthesia: general, local Specimen: yes Complications: none Condition: stable Fluids: see records Estimated Blood Loss: minimal Drains: none Implant(s) used?: No Marin Calderon Sep 10, 2019 13:52
[2019-09-10] MEDS ORDERED: Morphine Sulfate 2mg/ml Inj(IV/IM USE ONLY) IVP PRN (14:00)
[2019-09-10] MEDS: Piperacillin/Tazobactam 3.375 GM in NS 110 ML IVPB SCH ×2 (14:00→22:24)
[2019-09-10] MEDS ORDERED: HYDROcodone/Acetamin 5/325 tab ORAL PRN (14:00)
[2019-09-10] MEDS ORDERED: ceFAZolin sod 2 GM in D5W 110 ML IV SCH (14:00)
[2019-09-10] MEDS ORDERED: Morphine Sulfate 4mg/ml Inj (IV USE ONLY) IVP PRN (14:00)
[2019-09-10] MEDS ORDERED: Ketorolac 30mg Inj IV PRN (14:00)
[2019-09-10] MEDS ORDERED: DiphenhydrAMINE 25mg Tab ORAL PRN (14:00)
[2019-09-10] MEDS ORDERED: HYDROcodone/Acetamin 10/325 tab ORAL PRN (14:00)
[2019-09-10] MEDS ORDERED: Sennosides 8.6mg tab ORAL PRN (14:00)
--- NOTE | 2019-09-10 15:25 | NUR ---
NURSE NOTES: Patient back on floor. With steri stips as post op dressing. May DC IV if able to tolerate fluids. Addendum: 09/10/19 at 1950 by Zenobia Taylor RN For incentive spirometry, spoke to ellen of [facility].
--- NOTE | 2019-09-10 16:01 | 48 Hour Post Anesthesia Eval ---
Post Anesthesia Evaluation Procedure: Laparoscopic Appendectomy Date of Evaluation: Sep 10, 2019 Time of Evaluation: 16:00 Blood Pressure Systolic: 102 0: 63 Pulse Rate: 83 Respiratory Rate: 20 Temperature (Fahrenheit): 98.2 O2 Sat by Pulse Oximetry: 99 Airway: patent Nausea: No Vomiting: No Pain Intensity: 3 Hydration Status: adequate Cardiopulmonary Status: Stable Mental Status/LOC: patient returned to baseline Follow-up Care/Observations: 0 Post-Anesthesia Complications: 0 Follow-up care needed: N/A Francisco Fang MD Sep 10, 2019 16:01
[2019-09-10] MEDS: Docusate 100mg cap ORAL SCH (17:28)
--- NOTE | 2019-09-10 17:30 | History and Physical Report ---
DATE OF ADMISSION: 09/10/2019 TIME SEEN: 11 a.m. CONSULTANTS: 1. Marin Calderon M.D. 2. Jackson Bello M.D. 3. Antony Gomez M.D. CHIEF COMPLAINT: Appendicitis, abdominal pain, nausea and vomiting. BRIEF HISTORY: The patient is a 48-year-old female who lives at home, presents with two-day increased abdominal pain, nausea, vomiting. Pain was generalized and radiates to the right lower quadrant, came to [facility], diagnosed with the above, and being admitted to medical floor. Currently, calm, in the [place]. No complaint. REVIEW OF SYSTEMS: No chest pain. Slight nausea and vomiting. No diarrhea. PAST MEDICAL HISTORY: Nothing. PAST SURGICAL HISTORY: Nothing. MEDICATIONS: Include Zosyn, midazolam, propofol, lidocaine, fentanyl, IV fluids, morphine. ALLERGIES: Denies. SOCIAL HISTORY: No smoking. No alcohol. No intravenous drug abuse. FAMILY HISTORY: Noncontributory. PHYSICAL EXAMINATION: GENERAL: Calm in bed, oriented x3, no acute distress. VITAL SIGNS: Temperature 97, pulse 72, respiratory rate 18, blood pressure 112/76. CARDIOVASCULAR: No murmur. LUNGS: Distant and clear. ABDOMEN: Bowel sounds positive. Nondistended. Slightly tender right lower quadrant. No guarding. No rigidity. No rebound. EXTREMITIES: No cyanosis or edema. NEUROLOGIC: The patient moves all extremities, slightly weak. LABORATORY DATA: CBC is normal. BMP show BUN 19, glucose 133, otherwise normal. INR is 1.0 and PTT 23. Urinalysis show 1+ leukocyte esterase. ASSESSMENT: 1. Appendicitis. 2. Abdominal pain. 3. Nausea and vomiting. 4. Urinary tract infection. PLAN: 1. Antibiotics as ordered. 2. NPO, IV fluids. 3. Zofran as needed . 4. Surgery followup. 5. CBC and BMP in the morning. Chirag Valencia D.O. DR: William JOB#: [id number] CC:
--- NOTE | 2019-09-10 18:30 | NUR ---
NURSE NOTES: Able to tolerated sips of fluids and a little dinner. No reports of nausea.
--- NOTE | 2019-09-10 19:15 | Operative Note - Dictated ---
DATE OF OPERATION: 09/10/2019 PREOPERATIVE DIAGNOSIS: Acute appendicitis. POSTOPERATIVE DIAGNOSIS: Acute appendicitis, uncomplicated. OPERATION PERFORMED: Laparoscopic appendectomy. ATTENDING SURGEON: Marin Calderon M.D. DIRECTOR OF CARDIOLOGY: None. ANESTHESIOLOGIST: Malinda Dominguez CRNA ANESTHESIA: General G[employer] INST[employer]ER plus local. ESTIMATED BLOOD LOSS: Minimal. IV FLUIDS: Please see anesthesia records. COMPLICATIONS: None. DRAINS: None. COUNTS: Sponge and needle count correct x2. WOUND CLASSIFICATION: Class 3. SPECIMENS: Appendix sent to pathology for review. ANTIBIOTICS: The patient is on scheduled IV Zosyn for acute active infectious process. INDICATIONS FOR PROCEDURE: This is a 48-year-old female, who has been admitted to the Emergency Department of [facility] complaining of worsening abdominal pain in the periumbilical area radiating to the right lower quadrant for 1 day with associated nausea. Laboratories okay. CT scan identified appendicoliths. On examination with focal right lower quadrant tenderness and rebound. Given these findings, considerations for the acute appendicitis and physical exam consistent with appendicitis. Long discussion was held with the patient regards to above findings, care plan, and condition. Offered her a surgical intervention versus monitoring medical management. The patient expressed that she was not comfortable with monitoring and definitive treatment even with the possibility of a negative laparoscopy. Risks, benefits, and alternatives were discussed. Consent was obtained. The patient was taken to the operating room. OPERATIVE NOTE: The patient was taken to the operating room and placed on the operating table in supine position with left arm tucked. All bony prominences were well padded. SCDs placed. Preoperative time-out taken in identifying the patient, procedure, operative staff, and surgical staff. General anesthesia was induced. The patient was intubated. The patient is already on scheduled IV antibiotics. The patient did not require a Shane given that she voided prior. The abdomen was clipped, prepped, and draped in standard surgical fashion. An umbilical incision was made using a fresh #11 scalpel and carried down to the fascia, which was elevated and incised. Entry into the abdomen was obtained using open Jalen technique without complication. A 12 mm Jalen trocar was inserted. The abdomen was insufflated to 12 to 15 mmHg. The patient tolerated the insufflation well. Laparoscope was inserted and the abdomen was inspected. No injury from initial trocar placement noted. Secondary trocars were placed under direct visualization beginning with a 12 mm left lower quadrant followed by 5 mm suprapubic. No injury from secondary trocar placement noted. Local anesthetic was infiltrated into all port sites and skin incisions throughout the procedure to the patient's comfort. The patient was placed in Trendelenburg position with left side down. The pelvis was identified with Murky fluid. The cecum was identified, followed down to the teniae confluence where the base of the appendix was noted to be dilated and inflamed with early formation of phlegmon and tissue. The tip of the appendix was identified and fairly healthy. The appendix was grasped and elevated. A window was made between the base of the appendix and the mesoappendix. A laparoscopic linear stapler was used and the appendix was divided at the base without complication. Following this, the mesoappendix was divided using a laparoscopic linear stapler without complication. The staple lines were checked and hemostasis was obtained with laparoscopic clips without complication. Good hemostasis was noted. No bleeding and viable tissue noted. An inflamed appendix was placed in endoscopic retrieval bag and removed from the abdomen using the umbilical port site. The right lower quadrant and pelvis were irrigated and suctioned clean. The abdomen was inspected. No other abnormalities were identified. At this time, we began the conclusion of our procedure. Secondary trocars were removed under direct visualization followed by the umbilical trocar site. The abdomen was desufflated. The umbilical trocar site and left lower quadrant port site fascia were reapproximated using [id number] #0 Vicryl sutures. Skin incisions were reapproximated using 4-0 Monocryl subcuticular interrupted sutures. Skin glue and Steri-Strips were applied. The patient tolerated the procedure well and was extubated and taken to postanesthetic care unit in stable condition. Marin Calderon M.D. DR: MONE JOB#: [id number] CC:
--- NOTE | 2019-09-10 19:42 | NUR ---
HAND-OFF: Report given to felicitas.
--- NOTE | 2019-09-10 19:44 | NUR ---
NURSE NOTES: Received report from Zenobia RN. Rounding is done with outgoing nurse. Patient is in bed, a/o x4. No sob noted. Denied pain or any distress. Iv site is intact and patient. Bed is on alarm, locked, and Lowest position. Call light within reach. Will continue to monitor.
[2019-09-11] VITALS: BP 95/56
[2019-09-11 04:00] VITALS: BP 97/63
[2019-09-11] MEDS: Piperacillin/Tazobactam 3.375 GM in NS 110 ML IVPB SCH ×2 (05:11→14:45)
[2019-09-11 07:07] LABS: BASOPHILS % (AUTO) 0.3 % (0.0-2.0); HEMATOCRIT 34.2 % (37.0-47.0); HEMOGLOBIN 11.9 G/DL (12.0-16.0); LYMPHOCYTES % (AUTO) 11.2 % (20.0-45.0); MEAN CORPUSCULAR VOLUME 88 FL (80-99); MONOCYTES % (AUTO) 3.8 % (1.0-10.0); NEUTROPHILS % (AUTO) 84.7 % (45.0-75.0); PLATELET COUNT 155 K/UL (150-450); RED BLOOD COUNT 3.86 M/UL (4.20-5.40); RED CELL DISTRIBUTION WIDTH 11.5 % (11.6-14.8); WHITE BLOOD COUNT 6.6 K/UL (4.8-10.8)
[2019-09-11 07:19] LABS: ANION GAP 10 mmol/L (5-15); BLOOD UREA NITROGEN 12 mg/dL (7-18); CALCIUM 9.1 MG/DL (8.5-10.1); CARBON DIOXIDE 27 MMOL/L (21-32); CHLORIDE 110 MMOL/L (98-107); CREATININE 0.7 MG/DL (0.55-1.30); POTASSIUM 4.3 MMOL/L (3.5-5.1); SODIUM 146 MMOL/L (136-145)
--- NOTE | 2019-09-11 07:30 | NUR ---
HAND-OFF: Report given to Tomi HANLEY. Patient in stable condition.
--- NOTE | 2019-09-11 07:43 | NUR ---
NURSE NOTES: Received pt from DAYAN Amador. pt was resting. no c/o pain. no acute distress, surgical dressing sites are clean and dry. call light w/in reach.
[2019-09-11 08:00] VITALS: BP 109/74
[2019-09-11] MEDS: Docusate 100mg cap ORAL SCH (08:16)
--- NOTE | 2019-09-11 09:37 | General Progress Note ---
Assessment/Plan Problem List: (1) Abdominal pain (2) Appendicitis, acute ICD Codes: K35.80 - Unspecified acute appendicitis SNOMED: 63956675 Qualifiers: Qualified Codes: K35.30 - Acute appendicitis with localized peritonitis, without perforation or gangrene (3) Bacteria in urine ICD Codes: N39.0 - Urinary tract infection, site not specified SNOMED: 50479299 Status: stable, progressing Assessment/Plan: gi sx adv diet abx cbc bmp am Subjective Constitutional: Reports: weakness Allergies: Coded Allergies: No Known Allergies (Unverified , 03/03/13) All Systems: reviewed and negative except above Subjective calm in bed passing gas Objective Last 24 Hour Vital Signs Date Time Temp Pulse Resp B/P (MAP) Pulse Ox O2 Delivery O2 Flow Rate FiO2 09/11/19 08:00 98.1 69 18 109/74 (86) 98 09/11/19 04:00 98.3 69 18 97/63 (74) 98 09/11/19 00:00 97.4 66 18 95/56 (69) 97 09/10/19 21:00 Room Air 09/10/19 20:00 99.7 86 18 96/62 (73) 98 09/10/19 16:01 83 20 99 09/10/19 16:00 99.4 82 18 112/64 (80) 96 09/10/19 14:57 98.2 83 20 102/63 99 Nasal Cannula 3 09/10/19 14:45 98.2 81 20 101/63 100 Nasal Cannula 3 09/10/19 14:30 74 20 101/60 100 Nasal Cannula 3 09/10/19 14:15 75 20 101/59 100 Nasal Cannula 3 09/10/19 14:05 78 20 104/60 100 Simple Mask 8 09/10/19 14:03 84 20 100 09/10/19 14:00 80 20 105/61 100 Simple Mask 8 09/10/19 13:56 99.2 84 20 105/62 100 Simple Mask 8 09/10/19 11:40 Room Air 09/10/19 11:20 97.8 72 18 112/76 99 Room Air Intake and Output 09/10/19 09/11/19 19:00 07:00 Intake Total 840 ml 110.0 ml Balance 840 ml 110.0 ml Intake Oral 240 ml IV Total 600 ml 110.0 ml # Voids 1 1 Laboratory Tests 09/11/19 05:25: White Blood Count 6.6, Red Blood Count 3.86L, Hemoglobin 11.9L, Hematocrit 34.2L , Mean Corpuscular Volume 88, Mean Corpuscular Hemoglobin 30.7, Mean Corpuscular Hemoglobin Concent 34.7, Red Cell Distribution Width 11.5L, Platelet Count 155, Mean Platelet Volume 8.1, Neutrophils (%) (Auto) 84.7H, Lymphocytes (%) (Auto) 11.2L, Monocytes (%) (Auto) 3.8, Eosinophils (%) (Auto) 0.0, Basophils (%) (Auto) 0.3, Sodium Level 146H, Potassium Level 4.3, Chloride Level 110H, Carbon Dioxide Level 27, Anion Gap 10, Blood Urea Nitrogen 12, Creatinine 0.7, Estimat Glomerular Filtration Rate > 60, Glucose Level 96, Calcium Level 9.1 Height (Feet): 5 Height (Inches): 5.00 Weight (Pounds): 136 General Appearance: lethargic EENT: normal ENT inspection Neck: normal alignment Cardiovascular: normal peripheral pulses, normal rate, regular rhythm Respiratory/Chest: chest wall non-tender, lungs clear, normal breath sounds Abdomen: normal bowel sounds, non tender, soft Extremities: normal inspection Edema: no edema noted Arm (L), no edema noted Arm (R), no edema noted Leg (L), no edema noted Leg (R), no edema noted Pedal (L), no edema noted Pedal (R), no edema noted Generalized Neurologic: responsive, motor weakness Skin: normal pigmentation, warm/dry Chirag Valencia DO Sep 11, 2019 09:37
--- NOTE | 2019-09-11 10:10 | NUR ---
PT Note PT eval completed; patient was instructed on log rolling techniques to minimize incisional pain. Patient is independent and safe in all mobility and gait. No further PT treatments needed. Addendum: 09/11/19 at 1011 by BEENA JIMÉNEZ PT Amended: Links added.
[2019-09-11 12:00] VITALS: BP 103/61
[2019-09-11] MEDS ORDERED: Sterile Water Irrig 1000ml IRRIG ONE (12:30)
[2019-09-11] MEDS ORDERED: NS Irrig 1000ml ONE (12:30)
[2019-09-11] MEDS ORDERED: LR 1000ml ONE (12:30)
--- NOTE | 2019-09-11 14:08 | Infectious Diseases Prog Note ---
Assessment/Plan Assessment/Plan Asssessment: Acute appendicitis -09/10 SP Laparoscopic appendectomy. Afebrile No leukocytosis Plan: -Continue Zosyn #2 -f/u cx -Monitor CBC/CMP, temperatures -wound care per surgical team thank you for consulting [facility]. Will continue to follow along with you. Discussed with RN. Subjective Allergies: Coded Allergies: No Known Allergies (Unverified , 03/03/13) Subjective afebrile sp lap appy yesterday Objective Vital Signs Last 24 Hour Vital Signs Date Time Temp Pulse Resp B/P (MAP) Pulse Ox O2 Delivery O2 Flow Rate FiO2 09/11/19 12:00 97.7 85 18 103/61 (75) 98 09/11/19 09:00 Room Air 09/11/19 08:00 98.1 69 18 109/74 (86) 98 09/11/19 04:00 98.3 69 18 97/63 (74) 98 09/11/19 00:00 97.4 66 18 95/56 (69) 97 09/10/19 21:00 Room Air 09/10/19 20:00 99.7 86 18 96/62 (73) 98 09/10/19 16:01 83 20 99 09/10/19 16:00 99.4 82 18 112/64 (80) 96 09/10/19 14:57 98.2 83 20 102/63 99 Nasal Cannula 3 09/10/19 14:45 98.2 81 20 101/63 100 Nasal Cannula 3 09/10/19 14:30 74 20 101/60 100 Nasal Cannula 3 09/10/19 14:15 75 20 101/59 100 Nasal Cannula 3 Height (Feet): 5 Height (Inches): 5.00 Weight (Pounds): 136 Objective Dressing: dry Wound: clean Cardiovascular: RSR Respiratory: clear Abdomen: soft, non-tender, present bowel sounds Extremities: no edema, no tenderness, no cyanosis Laboratory Tests Test 09/11/19 05:25 White Blood Count 6.6 K/UL (4.8-10.8) Red Blood Count 3.86 M/UL (4.20-5.40) L Hemoglobin 11.9 G/DL (12.0-16.0) L Hematocrit 34.2 % (37.0-47.0) L Mean Corpuscular Volume 88 FL (80-99) Mean Corpuscular Hemoglobin 30.7 PG (27.0-31.0) Mean Corpuscular Hemoglobin Concent 34.7 G/DL (32.0-36.0) Red Cell Distribution Width 11.5 % (11.6-14.8) L Platelet Count 155 K/UL (150-450) Mean Platelet Volume 8.1 FL (6.5-10.1) Neutrophils (%) (Auto) 84.7 % (45.0-75.0) H Lymphocytes (%) (Auto) 11.2 % (20.0-45.0) L Monocytes (%) (Auto) 3.8 % (1.0-10.0) Eosinophils (%) (Auto) 0.0 % (0.0-3.0) Basophils (%) (Auto) 0.3 % (0.0-2.0) Sodium Level 146 MMOL/L (136-145) H Potassium Level 4.3 MMOL/L (3.5-5.1) Chloride Level 110 MMOL/L (98-107) H Carbon Dioxide Level 27 MMOL/L (21-32) Anion Gap 10 mmol/L (5-15) Blood Urea Nitrogen 12 mg/dL (7-18) Creatinine 0.7 MG/DL (0.55-1.30) Estimat Glomerular Filtration Rate > 60 mL/min (>60) Glucose Level 96 MG/DL (74-106) Calcium Level 9.1 MG/DL (8.5-10.1) Current Medications Medications (Trade) Dose Ordered Sig/Joey Route PRN Reason Start Time Stop Time Status Last Admin Dose Admin Acetaminophen (Tylenol) 650 mg Q6H PRN ORAL Mild Pain (Pain Scale 1-3) 09/10/19 21:00 10/10/19 20:59 Acetaminophen/ Hydrocodone Bitart ([place] 10/325) 1 tab Q4H PRN ORAL Severe Pain (Pain Scale 7-10) 09/10/19 14:00 09/17/19 13:59 Acetaminophen/ Hydrocodone Bitart ([place] 5/325) 1 tab Q4H PRN ORAL Moderate Pain (Pain Scale 4-6) 09/10/19 14:00 09/17/19 13:59 Al Hydroxide/Mg Hydroxide (Mylanta) 15 ml Q6H PRN ORAL DYSPEPSIA 09/10/19 14:00 10/10/19 13:59 Diphenhydramine HCl (Benadryl) 25 mg Q8H PRN ORAL Itching/Pruritis 09/10/19 14:00 10/10/19 13:59 Docusate Sodium (Colace) 100 mg TWICE A DAY ORAL 09/10/19 18:00 10/10/19 17:59 09/11/19 08:16 Ketorolac Tromethamine (Toradol 30mg) 15 mg Q6H PRN IV For break through Pain 09/10/19 14:00 09/15/19 13:59 Morphine Sulfate (Morphine Sulfate) 2 mg Q4H PRN IVP pain scale 4-6 09/10/19 14:00 09/17/19 13:59 09/11/19 09:53 Morphine Sulfate (Morphine Sulfate) 4 mg Q4H PRN IVP pain score 7-10 09/10/19 14:00 09/17/19 13:59 Ondansetron HCl (Zofran) 4 mg Q6H PRN IVP Nausea & Vomiting 09/10/19 14:00 10/10/19 13:59 Piperacillin Sod/ Tazobactam Sod 3.375 gm/Sodium Chloride 110 ml @ 27.5 mls/hr EVERY 8 HOURS IVPB 09/10/19 14:00 09/15/19 13:59 09/11/19 05:11 Sennosides (Senokot) 8.6 mg BIDPRN PRN ORAL Constipation 09/10/19 14:00 10/10/19 13:59 Temazepam (RestoriL) 7.5 mg DAILYPRN PRN ORAL Insomnia 09/10/19 14:21 09/17/19 14:20 Shelly Borja M.D. Sep 11, 2019 14:08
--- NOTE | 2019-09-11 14:11 | Surgery Progress Note ---
Surgery Progress Note Subjective Procedure Performed lap appy Symptoms: improved Objective Last 24 Hour Vital Signs Date Time Temp Pulse Resp B/P (MAP) Pulse Ox O2 Delivery O2 Flow Rate FiO2 09/11/19 12:00 97.7 85 18 103/61 (75) 98 09/11/19 09:00 Room Air 09/11/19 08:00 98.1 69 18 109/74 (86) 98 09/11/19 04:00 98.3 69 18 97/63 (74) 98 09/11/19 00:00 97.4 66 18 95/56 (69) 97 09/10/19 21:00 Room Air 09/10/19 20:00 99.7 86 18 96/62 (73) 98 09/10/19 16:01 83 20 99 09/10/19 16:00 99.4 82 18 112/64 (80) 96 09/10/19 14:57 98.2 83 20 102/63 99 Nasal Cannula 3 09/10/19 14:45 98.2 81 20 101/63 100 Nasal Cannula 3 09/10/19 14:30 74 20 101/60 100 Nasal Cannula 3 09/10/19 14:15 75 20 101/59 100 Nasal Cannula 3 I&O Intake and Output 09/10/19 09/11/19 19:00 07:00 Intake Total 840 ml 110.0 ml Balance 840 ml 110.0 ml Intake Oral 240 ml IV Total 600 ml 110.0 ml # Voids 1 1 Dressing: dry Wound: clean Cardiovascular: RSR Respiratory: clear Abdomen: soft, non-tender, present bowel sounds Extremities: no edema, no tenderness, no cyanosis Laboratory Tests Test 09/11/19 05:25 White Blood Count 6.6 K/UL (4.8-10.8) Red Blood Count 3.86 M/UL (4.20-5.40) L Hemoglobin 11.9 G/DL (12.0-16.0) L Hematocrit 34.2 % (37.0-47.0) L Mean Corpuscular Volume 88 FL (80-99) Mean Corpuscular Hemoglobin 30.7 PG (27.0-31.0) Mean Corpuscular Hemoglobin Concent 34.7 G/DL (32.0-36.0) Red Cell Distribution Width 11.5 % (11.6-14.8) L Platelet Count 155 K/UL (150-450) Mean Platelet Volume 8.1 FL (6.5-10.1) Neutrophils (%) (Auto) 84.7 % (45.0-75.0) H Lymphocytes (%) (Auto) 11.2 % (20.0-45.0) L Monocytes (%) (Auto) 3.8 % (1.0-10.0) Eosinophils (%) (Auto) 0.0 % (0.0-3.0) Basophils (%) (Auto) 0.3 % (0.0-2.0) Sodium Level 146 MMOL/L (136-145) H Potassium Level 4.3 MMOL/L (3.5-5.1) Chloride Level 110 MMOL/L (98-107) H Carbon Dioxide Level 27 MMOL/L (21-32) Anion Gap 10 mmol/L (5-15) Blood Urea Nitrogen 12 mg/dL (7-18) Creatinine 0.7 MG/DL (0.55-1.30) Estimat Glomerular Filtration Rate > 60 mL/min (>60) Glucose Level 96 MG/DL (74-106) Calcium Level 9.1 MG/DL (8.5-10.1) Plan Problems: (1) Abdominal pain (2) Appendicitis, acute Assessment & Plan: 48F with possible likely early acute appendicitis. afebrile, HD stable, labs okay CT noted exam with focal RLQ tenderness mcburney's point with mild voluntary guarding and rebound. long discussion with patient about above findings. i explained to her potential of early acute appendicitis vs enteritis, muscle spasm, etc. offered monitoring inpatient vs outpatient vs surgery. given tender and still remains so after narotics with focal in RLQ patient elected to proceed with surgical intervention. she does not want to take risk of monitoring and if potential of appendicitis would like to have early intervention risks, benefits, and alternatives discussed in detail. we discussed possibility of normal operative findings and potential normal appendix intraoperative npo iv fluids iv abx consent to OR for lap vs open appy thank you Additional Comments s.p lap appy acute appy doing well d/c home rx given f/u given Marin Calderon Sep 11, 2019 14:11
[2019-09-11 16:00] VITALS: BP 107/75
[2019-09-11] MEDS ORDERED: NORCO 5-325 TA1 EACH ORAL ×2 (16:05→16:06)
[2019-09-11] MEDS ORDERED: COLACE100 MG ORAL ×2 (16:11→16:12)
--- NOTE | 2019-09-11 18:54 | NUR ---
NURSE NOTES: D/c pt with in stable condition. D/c instruction was given. verbalized understanding
[2019-09-11] MEDS ORDERED: Tubing IV Secondary IV ONE (18:59)
--- NOTE | 2019-09-13 07:30 | Consultation ---
DATE OF CONSULTATION: 09/09/2019 INFECTIOUS DISEASE CONSULTATION REASON FOR CONSULTATION: Evaluation of the patient for appendicitis. HISTORY OF PRESENT ILLNESS: (The patient was not in the room at the time of my visit. Much of the information is gathered through the chart and speaking to the surgeon). The patient is a 48-year-old female, who was brought to this hospital for abdominal pain with radiation to the right upper quadrant. CT scan of the abdomen was suggestive of probable appendicitis. Surgeon has decided to take the patient for surgery. An Infectious Disease consultation has been requested for further evaluation of the patient for antibiotic management. PAST MEDICAL HISTORY: Unremarkable. MEDICATION: The patient has been started on IV Zosyn. ALLERGIES: No known drug allergies. SOCIAL HISTORY: Unremarkable as per note. FAMILY HISTORY: Unavailable. PHYSICAL EXAMINATION: VITAL SIGNS: Temperature 99, pulse 72, respiratory rate 18, and blood pressure 112/76. (The patient is not available in the room. We will do the rest of exams tomorrow). LABORATORY DATA: White blood cells 10, hemoglobin 14, and platelets 02:20. UA, 2 to 4 red blood cells, 0 to 2 white blood cells. BUN 19 and creatinine 0.8. ALT, AST, and alkaline phosphatase are unremarkable. CT of the abdomen mildly prominent appendix with at least 2 appendicoliths suggestive of appendicitis. ASSESSMENT: The patient is a 48-year-old female with, 1. Abdominal pain, probable appendicitis. 2. Normal white blood cells. 3. Afebrile. PLAN: 1. We will continue the patient on IV Zosyn, we will determine the event of the treatment based on the OP findings. 2. Monitor CBC. 3. Monitor BMP. 4. We will send blood culture. 5. We will follow OP findings. 6. Based on the patient's clinical course and labs, we will do further recommendations. Antony Gomez M.D. DR: LINO JOB#: [id number] CC:
--- NOTE | 2019-09-13 10:31 | Discharge Summary ---
Discharge Summary Discharge Summary _ DATE OF ADMISSION: 09/10/2019 DATE OF DISCHARGE: 09/11/2019 DISCHARGED BY: Dr. Valencia REASON FOR ADMISSION: 48 years old female with no significant past medical history, presented to emergency department , complaining of abdominal pain with acute onset. Pain initially reported as periumbilical , but then migrated to the right side. Pain reported as sharp and spasm-like . She reported nausea and vomiting. No fever or chills. No trauma. No urinary complaint. Laboratory work-up revealed no leukocytosis , stable hemoglobin , hematocrit and platelet count. Stable electrolytes and renal parameters . Stable LFT and lipase . Urinalysis revealed no evidence of urinary tract infection . EKG revealed sinus rhythm, no acute ischemic changes. CT of the abdomen and pelvis revealed mildly prominent appendix demonstrating at least 2 appendicolith, could represent early appendicitis or could be normal for this patient. Surgeon consulted for evaluation, and patient admitted for surgical evaluation. CONSULTANTS: ID specialist Dr. Borja surgery [facility] COURSE: Patient admitted to medical surgical floor. Patient started on IV fluids. Symptomatic treatment provided. Pain management was addressed as needed. Patient subsequently undergone laparoscopic appendectomy on 09/10. Course of recovery was uneventful. Empiric antibiotics provided at ID specialist recommendation . Patient remained afebrile , no leukocytosis. Postoperative course of recovery was uneventful. Patient slowly started on diet and was advanced as tolerated. Patient ambulated without difficulty. Small laparoscopic incisions remained clean. Patient voided without difficulty . Pain was controlled . Patient clinically stabilized and was ready for discharge. Prescription provided. Due to rapid and unexpected improvement in patient condition , patient was discharged in 1 day. FINAL DIAGNOSES: Acute uncomplicated appendicitis Status post laparoscopic appendectomy Abdominal pain DISCHARGE MEDICATIONS: See Medication Reconciliation list. DISCHARGE INSTRUCTIONS: Patient was discharged home. Follow-up with surgeon as outpatient as advised. I have been assigned to dictate discharge summary for this account. I was not involved in the patient's management. Marisol Moore NP Sep 13, 2019 10:31
== END 2019-09-11 19:00 | disposition home or self-care (01) | DRG 234 ==
LOC: EMR 03:44 → EDBEDREQ 08:50 → 3E 09:14
PROC: 0DTJ4ZZ Resection of Appendix, Percutaneous Endoscopic Approach (ICD-10-PCS; principal; 2019-09-10 12:00)
DX: K35.80 Unspecified acute appendicitis (principal); K76.89 Other specified diseases of liver
CPT/HCPCS: 36415; 74176; 80048; 80053; 81003; 83690; 85025; 85610; 85730; 86900; 86901; 87040; 94003; 94150; 96361; 96365; 96375; 96376; 99285; J2250; J2405; J2710; J2765; J7030